=== PATIENT | male | born 1940 | race Caucasian/White ===

== ENCOUNTER 2021-04-24 08:33 | Emergency (ER) | payer MEDICARE, SELFPAY ==
--- NOTE | ~2021-04-24 | XR_ITS ---
EXAMINATION: XR facial bones min 3V DATE: 04/24/2021 09:16 INDICATION: Right facial pain. TECHNIQUE: 4 views of the facial bones were obtained. COMPARISON: Head CT 07/23/2010 FINDINGS: There is rightward deviation of posterior nasal septum and leftward deviation of anterior n diego septum. No fracture. IMPRESSION: 1. No fracture. Reviewed, dictated and finalized at location A. IMPRESSION: 1. No fracture.
[2021-04-24 08:48] VITALS: BP 134/86; PULSE 96; RESP 16; TEMP 36.2; O2SAT 100
--- NOTE | 2021-04-24 09:00 | ED.DENTAL ---
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 He states he cannot open his mouth or he has sharp pain Related Data Allergies Allergy/AdvReac Type Severity Reaction Status Date / Time hydrocodone Allergy Unknown HALLUCINATIONS-- MAKES Verified 02/20/21 11:49 HIM FEEL REALLY GOOFY tomato Allergy Unknown HIVES Verified 02/20/21 11:49 Review of Systems Review of Systems: CONSTITUTIONAL: Denies fever, chills, sweats. EYES: Denies visual changes, redness, discharge. ENT: Denies rhinorrhea, congestion, sore throat, otalgia. Right-sided jaw pain CARDIOVASCULAR: Denies chest pain, palpitations, edema. RESPIRATORY: Denies dyspnea, wheezing, cough GASTROINTESTINAL: Denies abdominal pain, nausea, vomiting, diarrhea. GENITOURINARY: Denies dysuria, hematuria, abnormal discharge SKIN: Denies rash or itching. NEUROLOGIC: Denies numbness, or focal weakness. PSYCHIATRIC: Denies anxiety or depression. [facility] Past Medical History Medical History Arthritis Benign hypertension Bilateral knee pain Bladder tumor CIS (carcinoma in situ of bladder) Hypertension Neck pain OAB (overactive bladder) Paralyzed vocal cords (~2015) Shonna Ramires Surgical History Surgical History History of nephroureterectomy Hx of cataract extraction Family History Family History Father Hypertension Family history of cardiovascular disease, Onset Age: 68 Mother Hypertension Carcinoma of colon, Onset Age: 75 Social History Social History Smoking status: Never smoker Second hand tobacco smoke exposure: No Smoking end date: 06/30/01 Alcohol intake: never Substance use: never Substance use type: does not use Comments Fredy Exam Narrative: CONSTITUTIONAL: Denies fever, chills, sweats. EYES: Denies visual changes, redness, discharge. ENT: Denies rhinorrhea, congestion, sore throat, otalgia. Right side of mouth is swollen states has sharp pain in the TMJ with attempt to open CARDIOVASCULAR: Denies chest pain, palpitations, edema. RESPIRATORY: Denies dyspnea, wheezing, cough GASTROINTESTINAL: Denies abdominal pain, nausea, vomiting, diarrhea. GENITOURINARY: Denies dysuria, hematuria, abnormal discharge SKIN: Denies rash or itching. NEUROLOGIC: Denies numbness, or focal weakness. PSYCHIATRIC: Denies anxiety or depression. Course Course Emergency Course: Patient states is the third time is had jaw swelling and pain like this in has been treated in the past with steroids- insists it is TMJ X-ray of facial bones shows no fracture there is a right forward deviation the posterior nasal same symptoms septum and forward left deviation of the anterior nasal septum no mention of change in mandible mandible on right side Discussed with patient based on location that could be a dental abscess Started on steroid taper pack, amoxicillin, and low-dose baclofen with referral back to his primary care physician for further evaluation Vital Signs Vital signs: Vital Signs Temperature 97.2 F L 04/24/21 08:48 Pulse Rate 96 04/24/21 08:48 Respiratory Rate 16 04/24/21 08:48 Blood Pressure 134/86 04/24/21 08:48 Pulse Oximetry 100 04/24/21 08:48 Temperature 97.2 F L 04/24/21 08:48 Pulse Rate 96 04/24/21 08:48 Respiratory Rate 16 04/24/21 08:48 Blood Pressure 134/86 04/24/21 08:48 Pulse Oximetry 100 04/24/21 08:48 MDM - Dental/Oral Differential Diagn
== END 2021-04-24 09:38 | disposition home or self-care (01) ==
PROVIDERS: Emergency Provider Nurse Practitioner; PCP Family Medicine
DX: R22.0 Localized swelling, mass and lump, head (principal); M26.621 Arthralgia of right temporomandibular joint; M19.90 Unspecified osteoarthritis, unspecified site; I10 Essential (primary) hypertension; Z85.51 Personal history of malignant neoplasm of bladder; Z98.49 Cataract extraction status, unspecified eye; Z90.5 Acquired absence of kidney; Z90.6 Acquired absence of other parts of urinary tract
CPT/HCPCS: 70150; 99213; G0463

== ENCOUNTER 2021-10-23 12:54 | Emergency (ER) | payer MEDICARE, SELFPAY ==
--- NOTE | ~2021-10-23 | CT_ITS ---
EXAMINATION: CT abdomen pelvis w con DATE: 10/23/2021 14:54 INDICATION: Left lower quadrant abdominal pain. TECHNIQUE: Computed tomography (CT) of the abdomen and pelvis was performed with 100 mL Omnipaque 350 intravenous contrast. Automated exposure control and iterative reconstruction technique were employe d. The dose-length product was 1053.53 mGy-cm. COMPARISON: CT abdomen and pelvis 04/02/2018 FINDINGS: The visualized portions of the lung bases demonstrate mild atelectasis. There is mild emphy sema. There is a 4 mm nodule in lingula. There is chronic mild elevation of right hemidiaphragm. No p leural effusion. There is left atrial enlargement of the heart. There are coronary artery calcificati ons. No pericardial effusion. The central pulmonary arteries are enlarged, consistent with pulmonary arterial hypertension. There is a 15.2 x 6.3 x 9.7 cm mass in the liver with tumor thrombus in left p ortal vein. There is a 12 mm cyst in left hepatic lobe. There is a 2.3 cm mass in left hepatic lobe. There is a 6 mm cyst in right hepatic lobe. The gallbladder is normal. Calcifications in the spleen a re consistent with old granulomatous disease. The pancreas and adrenal glands are normal. There are c hanges of right nephrectomy. There are cysts in left kidney measuring up to 7.9 cm. There are scatter ed diverticula in the colon. There is fat stranding in the mesentery in left lower quadrant. The appe ndix is normal. There is a 3.1 x 1.8 cm mass in right pelvis with adjacent surgical clips. There is p rominent fat in the inguinal canals that may be hernias. There is a mildly enlarged right common juana c lymph node. There is mild aortocaval lymphadenopathy. There is no free intraperitoneal fluid. There is severe lumbar spondylosis. There is a chronic compression fracture of T12. IMPRESSION: 1. 15.2 cm liver mass with tumor thrombus in left portal vein, consistent with malignancy such as hep atocellular carcinoma, cholangiocarcinoma, or metastatic disease. 2. 2.3 cm liver mass, consistent with metastatic disease. 3. Pelvic mass and retroperitoneal lymphadenopathy suspicious for metastatic urothelial carcinoma. 4. Fat stranding in mesentery in left lower quadrant, consistent with inflammation. Reviewed, dictated and finalized at location A. IMPRESSION: 1. 15.2 cm liver mass with tumor thrombus in left portal vein, consistent with malignancy such as hepatocellular carcinoma, cholangiocarcinoma, or metastatic disease. 2. 2.3 cm liver mass, consistent with metastatic disease. 3. Pelvic mass and retroperitoneal lymphadenopathy suspicious for metastatic ur othelial carcinoma. 4. Fat stranding in mesentery in left lower quadrant, consistent with inflammat ion.
[2021-10-23 13:05] VITALS: BP 143/78; PULSE 92; RESP 18; TEMP 36.1; O2SAT 94
[2021-10-23 13:23] LABS: Basophils Percent Auto 0.3 % (0.2-1.2); Eosinophils Percent Auto 0.5 % (0-4.4); Hemoglobin 12.6 g/dL (14.0-18.0); Immature Granulocyte Absolute 0.04 K/mm3 (0.00-0.031); Immature Granulocyte Percent A 0.5 % (0-0.5); Lymphocytes Absolute Auto 0.74 K/mm3 (0.9-3.2); Lymphocytes Percent Auto 9.6 % (18.3-44.2); Mean Corpuscular HGB Conc 32.3 g/dl (32-36); Mean Corpuscular Hemoglobin 28.4 pg (26-34); Monocytes Absolute Auto 0.7 K/mm3 (0.1-0.6); Monocytes Percent Auto 8.4 % (2.6-8.5); Neutrophils Absolute Auto 6.2 K/mm3 (1.3-6.7); Neutrophils Percent Auto 80.7 % (45.5-73.1); Platelet Count Result 231 k/mm3 (150-375); Red Blood Count 4.43 M/mm3 (4.6-6.20); Red Cell Distribution Width 12.9 % (11.5-14.5); White Blood Count 7.7 K/mm3 (4.5-10.0)
[2021-10-23 13:30] LABS: Add Urine Microscopic? YES; Appearance Urine Clear (Clear); Bilirubin Urine Negative (Negative); Blood Urine 1+ (Negative); Color Urine Yellow (Yellow); Glucose Urine UA Negative (Negative); Ketones Urine 1+ mg/dL (Negative); Leukocyte Esterase Ur Negative LEU/UL (Negative); Mucus Urine Few /lpf; Nitrate Urine Negative (Negative); Protein Urine Negative (Negative); Squamous Epithelial Cell Urine Rare /hpf (Few); Urobilinogen Urine Negative mg/dL (<2.0); WBC Urine 0-3 /hpf
[2021-10-23 13:33] LABS: Alanine Aminotransferase 20 U/L (4-50); Alkaline Phosphatase 163 U/L (38-126); Anion Gap 8 mmol/L (8-16); Aspartate Amino Transferase 32 U/L (17-59); Bilirubin,Total 1.6 mg/dL (0.2-1.3); Blood Urea Nitrogen 15 mg/dL (9-20); Calcium 8.7 mg/dL (8.4-10.2); Carbon Dioxide 25 mmol/L (22-30); Chloride 104 mmol/L (98-107); Estimated CRCL calculation 76 ml/min; Estimated Glomerular Filt Rate > 60; Glucose 97 mg/dL (65-110); Lipase 30 U/L (23-300); Potassium 3.9 mmol/L (3.4-5.0); Sodium 137 mmol/L (137-145)
--- NOTE | 2021-10-23 14:37 | ED.ABDPAIN ---
HPI - Abdominal Pain General Chief Complaint: Abdominal Pain Stated Complaint: abdominal pain Time Seen by Provider: 10/23/21 14:17 Source: patient Mode of arrival: ambulatory Limitations: no limitations History of Present Illness HPI narrative: Patient is a 81-year-old male who presents the ED with report of left lower quadrant abdominal pain for the past 3 to 4 days. Patient reports a history of diverticulosis previously seen on CT scan, but states he has never had an episode of diverticulitis. Over the last 3 to 4 days, he has had increasing pain in his LLQ. He has not tried anything for the pain at home. He also reports having recent constipation which has since resolved. His last bowel movement was last night and normal. He denies any fever, chills, nausea, vomiting, urinary symptoms, rectal bleeding. Related Data Allergies Allergy/AdvReac Type Severity Reaction Status Date / Time hydrocodone Allergy Unknown HALLUCINATIONS-- MAKES Verified 10/23/21 14:22 HIM FEEL REALLY GOOFY tomato Allergy Unknown HIVES Verified 10/23/21 14:22 Review of Systems Review of Systems: CONSTITUTIONAL: Denies fever, chills. CARDIOVASCULAR: Denies chest pain. RESPIRATORY: Denies dyspnea. GASTROINTESTINAL: Reports LLQ ABD pain, constipation (resolved). Denies nausea, vomiting, rectal bleeding, or diarrhea. GENITOURINARY: Denies dysuria or hematuria. SKIN: Denies rash or itching. MUSCULOSKELETAL: Denies back pain. NEUROLOGIC: Denies headache, numbness, or weakness. All systems reviewed & are unremarkable except as noted in HPI and below PMFSH Past Medical History Medical History Arthritis Benign hypertension Bilateral knee pain Bladder tumor CIS (carcinoma in situ of bladder) Hypertension Neck pain OAB (overactive bladder) Paralyzed vocal cords (~2015) Shonna Ramires Surgical History Surgical History History of nephroureterectomy Hx of cataract extraction Family History Family History Father Hypertension Family history of cardiovascular disease, Onset Age: 68 Mother Hypertension Carcinoma of colon, Onset Age: 75 Social History Social History Smoking status: Never smoker Second hand tobacco smoke exposure: No Smoking end date: 06/30/01 Alcohol intake: never Substance use: never Substance use type: does not use Exam Narrative: GENERAL: Well appearing, well-nourished, non-toxic, in no acute distress. HEAD: Normocephalic, atraumatic. NECK: Supple. No adenopathy, no masses. RESPIRATORY: Airway patent, respirations nonlabored. Clear to auscultation bilaterally, no rales, rhonchi, wheezing. CARDIOVASCULAR: Regular rate and rhythm without murmurs, rubs, or gallops. Peripheral pulses 2+ and equal bilaterally. ABDOMINAL: Soft, mild tenderness to palpation of suprapubic abdomen and RLQ, moderate tenderness to palpation of LLQ, nondistended, no hepatosplenomegaly. Normoactive BS. MUSCULOSKELETAL: Moves all extremities. Strength/ROM intact without gross deformities or TTP. SKIN: Warm, dry, normal color. No rashes. NEURO: A&O X3. Speech clear. Cranial nerves II-XII grossly intact. Steady gait. No ataxic movements. PSYCHIATRIC: Appropriate mood and affect. Normal interaction. Course Consultations Consultation #1: Discussed with Ila Washington NP for Dr. Bravo, patient presentation and workup. Will have office call to make follow up appointment. Date: 10/23/21 Time: 15:55 Consultation #2: Discussed case with Dr. Franco GI, advised patient to follow with [facility] for further evaluation. Date: 10/23/21 Time: 16:02 Vital Signs Vital signs: Vital Signs Temperature 97 F L 10/23/21 13:05 Pulse Rate 92 10/23/21 13:05 Respiratory Rate 18 10/23/21 13:05 Blood Press
[2021-10-23] MEDS: SODIUM CHLORIDE 0.9% IV 1,000 ML 999 ML IV CONT (14:56)
== END 2021-10-23 17:16 | disposition home or self-care (01) ==
PROVIDERS: Emergency Provider Emergency Medicine; PCP Family Medicine
DX: R16.0 Hepatomegaly, not elsewhere classified (principal); R10.9 Unspecified abdominal pain; I10 Essential (primary) hypertension; M19.90 Unspecified osteoarthritis, unspecified site; Z85.51 Personal history of malignant neoplasm of bladder
CPT/HCPCS: 36415; 74177; 80053; 81001; 83690; 85025; 96365; 99284; J0131; J7030; Q9967

== ENCOUNTER 2021-11-12 07:35 | Outpatient (CLI) | payer MEDICARE, SELFPAY ==
--- NOTE | ~2021-11-12 | NM_ITS ---
EXAMINATION: NM bone scan whole body DATE: 11/12/2021 11:56 INDICATION: Bladder cancer. Liver mass. TECHNIQUE: 24.9 mCi Tc-99m HDP was administered intravenously. Delayed whole-body scintigrams were o btained. COMPARISON: CT abdomen and pelvis 10/23/2021 FINDINGS: There is increased activity in T12 correlating with a chronic compression fracture by CT. T here is joint-increased activity in the acromioclavicular and sternoclavicular joints, wrists, and lacey mbar spine, likely osteoarthritis. There is increased activity at the right ankle, likely secondary t o arthritis or old fracture. The patient reports an old injury in this area. Right kidney is absent. IMPRESSION: 1. No evidence of metastatic disease. Reviewed, dictated and finalized at location B.
== END 2021-11-12 07:36 | disposition home or self-care (01) ==
LOC: ANHIMG 07:37
PROVIDERS: PCP Family Medicine; Visit Provider Urology
DX: K76.9 Liver disease, unspecified (principal)
CPT/HCPCS: 78306; A9561

== ENCOUNTER 2021-11-16 08:27 | Outpatient (CLI) | payer MEDICARE, SELFPAY ==
--- NOTE | 2021-11-12 11:49 | PC.NURSE ---
Pre Radiology instructions Report to the Outpatient Waiting Room, entrance under the green pavilion located off [facility], at time _0830 on date ___11/16/21____. Procedure Time: _1030 . One visitor will be allowed to accompany the patient into the hospital. The visitor will be instructed to remain with patient at all times or leave the building. We will allow the visitor to come back to the postoperative area when patient is ready. You and your visitor will be asked a series of questions to screen for COVID 19 for your protection. A mask is required within the hospital. Patients are to have no food or drink 6 hours prior to procedure time Driving will be restricted after the procedure, you must have a person to drive you home. Labs will be drawn in preop area and once reviewed, you will be taken to radiology area for procedure. When the procedure is completed, you will be taken to outpatient where you will be monitored for several hours. You may have one visitor in this area. Other than holding anti-coagulants, patient may take other medication(s) as scheduled. Prior to your appointment date patients are instructed to hold anti-coagulants after discussing with ordering provider to stop. If unable to discontinue anti-coagulants please notify radiologist. No aspirin or warfarin (Coumadin) for 7 days prior to the procedure. No clopidogrel (Plavix), ticagrelor (Brilinta), prasugrel (Effient) or dabigatran (Pradaxa) for 5 days prior to the procedure. No rivaroxaban (Xarelto), apixaban (Eliquis), dipyridamole (Aggrenox or Persantine) or cilostazol (Pletal) for 2 days prior to the procedure. Medications to discontinue per physician: ____NONE Date to take last dose: Please leave all valuables, including medications, at home the day of procedure. The hospital will not accept responsibility for valuables. Wear comfortable, loose fitting clothing. Follow any additional instructions given to you from ordering provider. Telephone instructions given to ___PATIENT and asked if any additional questions and then verbalized understanding. Patient advised to call scheduling provider office or registration scheduling [phone] if any additional questions.
[2021-11-12 11:51] VITALS: BMI 32.1
[2021-11-16] VITALS (9 sets, daily range): BP systolic 100–141; BP diastolic 67–82; PULSE 88–96; RESP 14–16; TEMP 35.9; O2SAT 93–98
--- NOTE | ~2021-11-16 | US_ITS ---
EXAMINATION: US biopsy liver DATE: 11/16/2021 11:15 INDICATION: Liver mass TECHNIQUE: The procedure including the risks and benefits was discussed with the patient. Risks discu ssed included bleeding and infection. The patient understood the risks and agreed to proceed. The sk in overlying the liver was prepped and draped in usual sterile fashion. Anesthetic was administered with 1% lidocaine subcutaneously. An 18 gauge core biopsy needle was advanced under continuous ultra sound observation to the lesion of interest. 4 core biopsy specimens were obtained. The needle was removed and the entry site was cleaned and dressed. Post procedure ultrasound demonstrated no hemorr anderson. FINDINGS: Ultrasound images demonstrate 11.9 x 10.7 x 8.2 cm heterogeneous mass with both hypoechoic and isoechoic regions and lobular margins at the junction of the left and right hepatic lobes. Subseq uent images demonstrate the biopsy needle advanced into the mass. IMPRESSION: 1. Successful Ultrasound-guided biopsy of 11.9 x 10.7 x 8.2 cm hepatic mass Reviewed, dictated and finalized at location A.
[2021-11-16 09:21] LABS: Mean Platelet Volume 10.6 fl (7.4-10.4); Platelet Count Result 252 k/mm3 (150-375)
[2021-11-16 09:37] LABS: INR 1.1; Prothrombin Time 14.2 Seconds (11.1-14.7)
--- NOTE | 2021-11-16 15:02 | SUR.PHASEII ---
1455 dr booker at bedside speaking with patient. patient is doing well, vital signs stable no pain, oxygen >925. patient okay for discharge per dr booker
== END 2021-11-16 15:10 | disposition home or self-care (01) ==
PROVIDERS: PCP Family Medicine; Referring Provider Urology; Visit Provider Radiology Diagnostic Radiology
PROC: BF45ZZZ Ultrasonography of Liver (ICD-10-PCS; CPT 47000; principal; 2021-11-16 10:30)
DX: K76.89 Other specified diseases of liver (principal); C22.7 Other specified carcinomas of liver
CPT/HCPCS: 36415; 47000; 76942; 85049; 85610; 88307; 88342

== ENCOUNTER 2021-12-04 12:00 | Outpatient (CLI) | payer MEDICARE, SELFPAY ==
--- NOTE | ~2021-12-04 | PE_ITS ---
EXAMINATION: PET skull to mid thigh DATE: 12/04/2021 13:38 INDICATION: Hepatocellular carcinoma. TECHNIQUE: Blood glucose level was 101 mg/dL. 11.055 mCi of 18-fluorodeoxyglucose (18-FDG) was admini stered i.v. Low dose computed tomography (CT) images were acquired from the base of the brain to the proximal thighs for attenuation correction and anatomic localization. Automated exposure control was employed. Dose-length product (DLP) was 1019 mGy-cm. Positron emission tomography (PET) images were a cquired in the same distribution. COMPARISON: CT abdomen and pelvis 10/23/2021 FINDINGS: Head/neck: There is increased activity in the oral cavity, pharynx, and glottis without abnormal CT c orrelate, likely physiologic. A left supraclavicular lymph node measures 13 x 11 mm with maximum SUV of 3.2. Chest: There is mild emphysema. There is mild elevation of right hemidiaphragm. There is mild atelect asis in the lungs, right worse than left. Calcified left hilar lymph nodes are consistent with old gr anulomatous disease. No pleural effusion. The heart size is normal. There are coronary artery calcifi cations. No pericardial effusion. There is a 13 mm subcutaneous mass without increased activity overl gloria the sternum, likely a sebaceous cyst. Abdomen/pelvis/proximal thighs: There are approximately 3 liver masses with increased activity. The l argest measures approximately 11.2 cm. Calcifications in the spleen are consistent with old granuloma tous disease. The pancreas and adrenal glands are normal. There are changes of right nephrectomy. The re is a 8.0 cm cyst in left kidney. There are no dilated loops of bowel. There is an enlarged right e xternal iliac node with increased activity. There is a 2.4 x 1.9 cm mass with maximum SUV of 6.6 in r ight pelvis adjacent to surgical clips. There is increased activity in multiple retroperitoneal lymph nodes. There is fat stranding with increased activity near the sigmoid colon. There is no free intra peritoneal fluid. At the junction of the right ilium and right gluteus medius muscle, there is a 1.5 cm focus of increased activity with maximum SUV of 3.[address] correlate. IMPRESSION: 1. 3 liver masses with increased activity, consistent with hepatocellular carcinoma. 2. Right pelvic mass and right pelvic and retroperitoneal lymphadenopathy with increased activity jase picious for metastatic urothelial carcinoma. 3. Fat stranding with increased activity in the sigmoid colon, consistent with inflammation versus pe ritoneal carcinomatosis. 4. Mildly enlarged left supraclavicular lymph node with increased activity, consistent with metastati c disease. Reviewed, dictated and finalized at location A. IMPRESSION: 1. 3 liver masses with increased activity, consistent with hepatocellular carci noma. 2. Right pelvic mass and right pelvic and retroperitoneal lymphadenopathy with increased activity suspicious for metastatic urothelial carcinoma. 3. Fat stranding with increased activity in the sigmoid colon, consistent with inflammation versus peritoneal carcinomatosis. 4. Mildly enlarged left supraclavicular lymph node with increased activity, con sistent with metastatic disease.
[2021-12-04 12:16] LABS: Glucose Point of Care 101 mg/dl (65-105)
== END 2021-12-04 12:01 | disposition home or self-care (01) ==
PROVIDERS: PCP Family Medicine; Visit Provider Internal Medicine Hematology & Oncology
DX: C22.0 Liver cell carcinoma (principal); R59.0 Localized enlarged lymph nodes; R19.00 Intra-abdominal and pelvic swelling, mass and lump, unspecified site
CPT/HCPCS: 78815; A9552

== ENCOUNTER 2021-12-06 11:46 | Outpatient (CLI) | payer MEDICARE, SELFPAY ==
[2021-11-29 15:04] VITALS: BMI 32.1
--- NOTE | 2021-11-29 15:12 | PC.NURSE ---
Report to the radiology dept, front of the [facility], at time _1130_ on date _12/06/21_. OR Time: _1200_. - You and your visitor will be asked a series of questions to screen for COVID 19 for your protection. - Only one visitor is allowed at this time. - The patient visitor is requested to leave or wait in car when not with patient. - A mask is required within the hospital. -Nothing to eat or drink 6 hours prior to your procedure (0600 AM) Take the following medications with a SIP of water the morning of procedure: _AS INSTRUCTED_ Medications to discontinue per physician ___AS INSTRUCTED Date to take last dose Please no make-up, nail kittitian, hairspray, perfume, deodorant, or body powder the day of surgery. No jewelry (including any body piercings) or valuables the day of surgery, leave them at home. Please take a shower or bath the night before, or the morning of, surgery with an antibacterial soap. Wear comfortable, loose fitting clothing. - Jewelry must be removed prior to entering the operating room. Rings and piercings that are not removed may be cut off. - The hospital will not accept responsibility for valuables. - Please leave all valuables, including medications, at home the day of surgery. If you are going home after surgery, a licensed bobtail driver must drive you home. - NO public transportation without another adult. - We recommend that an adult stay with you for 24 hours following discharge. - We also recommend that you do not drive, make important decision, drink alcoholic beverages, or take any drugs that were not prescribed by your health care provider for at least 24 hours after your discharge time. Follow any additional instructions given to you from RADIOLOGY. If you or anyone in your household have experienced Covid symptoms in the past week, please notify your surgeon or the nurse liaison at the phone number below for possible testing. Telephone instructions given to ____PT and asked if any additional questions and then verbalized understanding. Patient advised to call surgeon office or pre surgery nurse liaison [phone] if any additional questions.
[2021-12-06] VITALS (9 sets, daily range): BP systolic 84–132; BP diastolic 51–91; PULSE 83–99; RESP 16–18; O2SAT 92–96
--- NOTE | ~2021-12-06 | CT_ITS ---
EXAMINATION: CT biopsy lymph node DATE: 12/06/2021 13:29 INDICATION: Right pelvic mass. TECHNIQUE: The procedure including the risks, benefits, and alternatives was discussed with the patie nt. Risks discussed included bleeding and infection. The patient verbalized understanding of the risk s and agreed to proceed. The skin overlying the liver was prepped and draped in usual sterile fashio n. Anesthetic was administered with 1% lidocaine subcutaneously. A 16 gauge outer needle was advanc ed under CT guidance into the right pelvic mass. An 18 gauge core biopsy needle was then used to obta in 3 core biopsy specimens. Automated exposure control and iterative reconstruction technique were em ployed. The dose-length product was 148.32 mGy-cm. The needle was removed and the entry site was kirstin eduardo and dressed. There were no immediate complications. FINDINGS: CT images demonstrate the outer needle tip adjacent to a 2.4 x 1.9 cm mass in right pelvis. IMPRESSION: 1. CT-guided core needle biopsy of a right pelvic mass. Reviewed, dictated and finalized at location A.
== END 2021-12-06 17:29 | disposition home or self-care (01) ==
PROVIDERS: Radiology Diagnostic Radiology; PCP Family Medicine; Visit Provider Internal Medicine Hematology & Oncology
PROC: (CPT 77012; principal; 2021-12-06 12:00)
DX: C67.9 Malignant neoplasm of bladder, unspecified (principal)
CPT/HCPCS: 38505; 77012; 88305; 88342

== ENCOUNTER 2021-12-26 02:59 | Day surgery (SDC) | payer MEDICARE, SELFPAY ==
[2021-11-29 15:29] VITALS: BMI 32.1
--- NOTE | 2021-11-29 15:39 | PC.NURSE ---
Report to the Outpatient Waiting Room, entrance under the green pavilion located off [facility], at time ___0830____ on date __12/07/21 . OR Time: ___1030 . - You and your visitor will be asked a series of questions to screen for COVID 19 for your protection. - Only one visitor is allowed at this time. - The patient visitor is requested to leave or wait in car when not with patient. - A mask is required within the hospital. Patients may have clear liquids (water, carbonated beverages, clear teas, apple juice) until 3 hours prior to surgery (0730 AM) with a maximum of 20 ounces. - No food from midnight until time of surgery Take the following medications with a SIP of water the morning of surgery: __TRAMADOL IF NEEDED____ Medications to discontinue per physician N/A Date to take last dose Please no make-up, nail [place], hairspray, perfume, deodorant, or body powder the day of surgery. No jewelry (including any body piercings) or valuables the day of surgery, leave them at home. Please take a shower or bath the night before, or the morning of, surgery with an antibacterial soap. Wear comfortable, loose fitting clothing. - Jewelry must be removed prior to entering the operating room. Rings and piercings that are not removed may be cut off. - The hospital will not accept responsibility for valuables. - Please leave all valuables, including medications, at home the day of surgery. If you are going home after surgery, a licensed stake driver must drive you home. - NO public transportation without another adult. - We recommend that an adult stay with you for 24 hours following discharge. - We also recommend that you do not drive, make important decision, drink alcoholic beverages, or take any drugs that were not prescribed by your health care provider for at least 24 hours after your discharge time. Follow any additional instructions given to you from your surgeon. If you or anyone in your household have experienced Covid symptoms in the past week, please notify your surgeon or the nurse liaison at the phone number below for possible testing. Telephone instructions given to ___PT and asked if any additional questions and then verbalized understanding. Patient advised to call surgeon office or pre surgery nurse liaison [phone] if any additional questions.
--- NOTE | 2021-12-06 12:03 | WPDANESEPPF ---
Anes - Initial Pre Proc Eval Procedure: Operation Date: 12/07/21 10:30 Proposed Procedures p Insertion Rebecca Cath - Terri Taylor MD Date/Time: 12/06/21 12:03 Surgeon: Terri Taylro MD Pre Op Diagnosis: hepatocellular CA Patient Data Age: 81 Gender: M Height: 1.73 m Weight: 95.9 kg Allergies Allergy/AdvReac Type Severity Reaction Status Date / Time hydrocodone Allergy Unknown HALLUCINATIONS-- MAKES Verified 11/30/21 11:31 HIM FEEL REALLY GOOFY tomato Allergy Unknown HIVES Verified 11/30/21 11:31 Home Medications Medication Instructions Recorded Confirmed Type lisinopril 10 1 tablet PO DAILY #90 tabs 03/03/20 11/30/21 Rx mg-hydrochlorothiazide 12.5 mg tablet tramadol 50 mg tablet 50 mg PO Q6H PRN pain #30 tabs 10/23/21 11/30/21 Rx Results Review: All pre-operative results and documents have been reviewed as part of the pre-operative evaluation. [facility] Past Medical History Medical History Anemia Arthritis Benign hypertension Bilateral knee pain Bladder tumor CIS (carcinoma in situ of bladder) Hypertension Liver mass Neck pain OAB (overactive bladder) Paralyzed vocal cords (~2015) Shonna Ramires Surgical History Surgical History History of nephroureterectomy Hx of cataract extraction Family History Family History Father Hypertension Family history of cardiovascular disease, Onset Age: 68 Mother Hypertension Carcinoma of colon, Onset Age: 75 Social History Social History Smoking packs per day: 2 Smoking cigarettes per day: 40.0 Years smoked: 40 Smoking pack-years: 80.00 Smoking status: Never smoker Tobacco type: cigarettes Second hand tobacco smoke exposure: No Smoking end date: 06/30/01 Alcohol intake: never Substance use: never Substance use type: does not use Living arrangements: with family Gender identity (if verbalized by the patient): Male Sexual Orientation (if Verbalized by the Patient): Straight or Heterosexual Spiritual care concerns: No Anes - Eval Final PreProcedure Day of Procedure 12/06/21 12:03 Patient weight: obese Heart: regular rate and rhythm Lungs: clear to auscultation and normal air movement Airway: Mallampati scale class II Neurological: alert and oriented Last oral intake: >/= 8 hours ASA classification: III Emergent: no Anesthetic plan: proceed Anesthesia type and monitoring: general GIVS Results Review: All pre-operative results and documents have been reviewed as part of the pre-operative evaluation. Informed Consent: The patient's anesthetic plan and its attendant risks and benefits were discussed with the patient/family/POA. Questions were solicited and answers provided to the satisfaction of the patient/family/POA.
--- NOTE | 2021-12-07 09:02 | SUR.PREOP ---
0900- Pt has not arrived for port a cath placement, arrival time should have been at 0830. Called pt and he stated his procedure was cancelled last week. Updated manger, printed circuit boards plasma etcher, and recovery.
[2021-12-20 08:29] VITALS: BMI 28.9
--- NOTE | 2021-12-20 08:34 | PC.NURSE ---
Report to the Outpatient Waiting Room, entrance under the green pavilion located off [facility], at time ___1100____ on date __12/21/21 . OR Time: ___1300 . - You and your visitor will be asked a series of questions to screen for COVID 19 for your protection. - Only one visitor is allowed at this time. - The patient visitor is requested to leave or wait in car when not with patient. - A mask is required within the hospital. Patients may have clear liquids (water, carbonated beverages, clear teas, apple juice) until 3 hours prior to surgery (1000 AM) with a maximum of 20 ounces. - No food from midnight until time of surgery - Infants may have breast milk until 4 hours before surgery, infant formula 6 hours prior to surgery. - Children will be allowed to drink immediately following surgery. If applicable, please bring a bottle or sippy cup to assist with drinking. Juice, water, soda, and popsicles are readily available. For infants on formula, please bring formula the day of surgery. Pacifiers are allowed. Take the following medications with a SIP of water the morning of surgery: ___TRAMADOL IF NEEDED Medications to discontinue per physician N/A Date to take last dose Please no make-up, nail canadian, hairspray, perfume, deodorant, or body powder the day of surgery. No jewelry (including any body piercings) or valuables the day of surgery, leave them at home. Please take a shower or bath the night before, or the morning of, surgery with an antibacterial soap. Wear comfortable, loose fitting clothing. Children are encouraged to wear pajamas. - Jewelry must be removed prior to entering the operating room. Rings and piercings that are not removed may be cut off. - The hospital will not accept responsibility for valuables. - Please leave all valuables, including medications, at home the day of surgery. If you are going home after surgery, a licensed farm truck driver must drive you home. - NO public transportation without another adult. - We recommend that an adult stay with you for 24 hours following discharge. - We also recommend that you do not drive, make important decision, drink alcoholic beverages, or take any drugs that were not prescribed by your health care provider for at least 24 hours after your discharge time. For Pediatric surgeries, we recommend two adults accompany the child home (only one inside the building at this time). Follow any additional instructions given to you from your surgeon. If you or anyone in your household have experienced Covid symptoms in the past week, please notify your surgeon or the nurse liaison at the phone number below for possible testing. Telephone instructions given to ____PT and asked if any additional questions and then verbalized understanding. Patient advised to call surgeon office or pre surgery nurse liaison [phone] if any additional questions.
--- NOTE | 2021-12-20 10:00 | PC.NURSE ---
Report to the Outpatient Waiting Room, entrance under the green pavilion located off [facility], at time __1230 on date ___12/26/21____. OR Time: ___1430 . - You and your visitor will be asked a series of questions to screen for COVID 19 for your protection. - Only one visitor is allowed at this time. - The patient visitor is requested to leave or wait in car when not with patient. - A mask is required within the hospital. Patients may have clear liquids (water, carbonated beverages, clear teas, apple juice) until 3 hours prior to surgery (1130 AM) with a maximum of 20 ounces. - No food from midnight until time of surgery - Infants may have breast milk until 4 hours before surgery, infant formula 6 hours prior to surgery. - Children will be allowed to drink immediately following surgery. If applicable, please bring a bottle or sippy cup to assist with drinking. Juice, water, soda, and popsicles are readily available. For infants on formula, please bring formula the day of surgery. Pacifiers are allowed. Take the following medications with a SIP of water the morning of surgery: ___TRAMADOL IF NEEDED Medications to discontinue per physician N/A Date to take last dose Please no make-up, nail lao, hairspray, perfume, deodorant, or body powder the day of surgery. No jewelry (including any body piercings) or valuables the day of surgery, leave them at home. Please take a shower or bath the night before, or the morning of, surgery with an antibacterial soap. Wear comfortable, loose fitting clothing. Children are encouraged to wear pajamas. - Jewelry must be removed prior to entering the operating room. Rings and piercings that are not removed may be cut off. - The hospital will not accept responsibility for valuables. - Please leave all valuables, including medications, at home the day of surgery. If you are going home after surgery, a licensed jinrikisha driver must drive you home. - NO public transportation without another adult. - We recommend that an adult stay with you for 24 hours following discharge. - We also recommend that you do not drive, make important decision, drink alcoholic beverages, or take any drugs that were not prescribed by your health care provider for at least 24 hours after your discharge time. For Pediatric surgeries, we recommend two adults accompany the child home (only one inside the building at this time). Follow any additional instructions given to you from your surgeon. If you or anyone in your household have experienced Covid symptoms in the past week, please notify your surgeon or the nurse liaison at the phone number below for possible testing. Telephone instructions given to PT and asked if any additional questions and then verbalized understanding. Patient advised to call surgeon office or pre surgery nurse liaison [phone] if any additional questions.
--- NOTE | ~2021-12-26 | XR_ITS ---
EXAMINATION: XR chest port-a-cath/central Exam Date/Time: 12/26/2021 14:20 CDT HISTORY: INSERT AARON CATH, POST-OP Comparison: 02/29/2016. RESULT: Lines, tubes, and devices: Left chest implanted port terminating at the cavoatrial junction. Lungs and pleura: Right basilar scar, otherwise clear. Cardiomediastinal silhouette: Stable cardiomediastinal silhouette. Other: No acute osseous or upper abdominal finding. IMPRESSION: No acute cardiopulmonary process. Reviewed, dictated and finalized at location K.
--- NOTE | ~2021-12-26 | XR_ITS ---
EXAMINATION: XR fl guide central line place DATE: 12/26/2021 13:30 CDT INDICATION: INSERT AARON CATH . TECHNIQUE: 2 fluoroscopic images of the chest were obtained during Port-A-Cath insertion performed by the surgeon. I was not present in the operating room. Fluoroscopy exposure time was 24.5 seconds. Cu mulative dose was 6.27 mGy. COMPARISON: Subsequent chest radiograph performed at 2:21 PM FINDINGS: Fluoroscopic images demonstrate catheterization versus catheter placement into the right atrium, noti ng that the postprocedure image demonstrates appropriate cavoatrial tip placement. A second image shawnee ws the port placement over the left chest. IMPRESSION: Fluoroscopic documentation of Port-A-Cath insertion. Please refer to the operative note for complete procedural details. . Reviewed, dictated and finalized at location K. IMPRESSION: Fluoroscopic documentation of Port-A-Cath insertion. Please refer to the operat annika note for complete procedural details. .
--- NOTE | 2021-12-26 11:36 | PM.IMHP ---
H&P: HPI History of Present Illness Date/Time: 12/26/21 11:36 Chief Complaint: HCC Narrative: Pt is a 81 y/o M recently dx'd c hepatocellular carcinoma. Pt is going to undergo chemotherapy. Pt denies any previous central catheterization. Review of Systems Review of Systems: All systems reviewed & are unremarkable except as noted in HPI and below PMFSH Past Medical History Medical History Anemia Arthritis Benign hypertension Bilateral knee pain Bladder tumor CIS (carcinoma in situ of bladder) Hypertension Liver mass Neck pain OAB (overactive bladder) Paralyzed vocal cords (~2015) MD I[facility]os Surgical History Surgical History History of nephroureterectomy Hx of cataract extraction Family History Family History Father Hypertension Family history of cardiovascular disease, Onset Age: 68 Mother Hypertension Carcinoma of colon, Onset Age: 75 Social History Social History Smoking packs per day: 2 Smoking cigarettes per day: 40.0 Years smoked: 40 Smoking pack-years: 80.00 Smoking status: Former smoker Tobacco type: cigarettes Second hand tobacco smoke exposure: No Smoking end date: 04/08/00 Alcohol intake: never Substance use: never Substance use type: does not use Living arrangements: with family Gender identity (if verbalized by the patient): Male Sexual Orientation (if Verbalized by the Patient): Straight or Heterosexual Spiritual care concerns: No Meds Home Medications and Allergies Home Medications Medication Instructions Recorded Confirmed Type lisinopril 10 1 tablet PO DAILY #90 tabs 03/03/20 12/20/21 Rx mg-hydrochlorothiazide 12.5 mg tablet tramadol 50 mg tablet 50 mg PO Q6H PRN pain #30 tabs 10/23/21 12/20/21 Rx Allergies Allergy/AdvReac Type Severity Reaction Status Date / Time hydrocodone Allergy Unknown HALLUCINATIONS-- MAKES Verified 12/20/21 08:29 HIM FEEL REALLY GOOFY tomato Allergy Unknown HIVES Verified 12/20/21 08:29 Exam Const: General: cooperative, comfortable, no acute distress and ill appearing Orientation/consciousness: patient oriented x3 Neck: Neck: normal visual inspection, full ROM and no lymphadenopathy Chest: Chest palpation & inspection: normal inspection of the chest Resp: Effort & Inspection: normal respiratory effort Auscultation: clear to auscultation bilaterally Cardio: Rate: regular rate Rhythm: regular rhythm GI: Inspection: normal to inspection and non-distended GI Palp: No abdominal tenderness, Yes Soft to palpation, No Tenderness to palpation present (GI), No Guarding due to palpation present (GI) and No Rigid due to palpation Assessment and Plan Assessment and plan (1) HCC (hepatocellular carcinoma): Code(s): C22.0 - Liver cell carcinoma Status: Acute Assessment and Plan: will setup for VAD placement of the left
--- NOTE | 2021-12-26 11:42 | WPDHPUPDATE1 ---
History and Physical Update Update Date/Time: 12/26/21 11:42 History and Physical has been reviewed, including an updated exam of the patient. There are NO changes in the patient's condition. Risks, benefits, and alternatives have been discussed and questions answered. Patient agrees to proceed with procedure.
[2021-12-26 11:51] VITALS: BP 133/82; PULSE 83; RESP 18; TEMP 36.3; O2SAT 97
[2021-12-26] MEDS: LACTATED RINGERS 1,000 ML 30 ML IV CONT (12:02)
[2021-12-26] MEDS: KETOROLAC 15 MG/ML VIAL (*BKC) IV PUSH (12:04)
--- NOTE | 2021-12-26 13:21 | WPDANESEPPF ---
Anes - Initial Pre Proc Eval Procedure: Operation Date: 12/26/21 13:30 Proposed Procedures p Insertion Rebecca Cath - Terri Taylor MD Date/Time: 12/26/21 13:21 Surgeon: Terri Taylor MD Pre Op Diagnosis: hepatocellular CA Patient Data Age: 81 Gender: M Height: 1.73 m Weight: 87.3 kg Last Vital Signs Temp 97.3 F L 12/26/21 11:51 Pulse 83 12/26/21 11:51 Resp 18 12/26/21 11:51 BP 133/82 12/26/21 11:51 Pulse Ox 97 12/26/21 11:51 O2 Del Method Room Air 12/26/21 11:51 Allergies Allergy/AdvReac Type Severity Reaction Status Date / Time hydrocodone Allergy Unknown HALLUCINATIONS-- MAKES Verified 12/26/21 11:48 HIM FEEL REALLY GOOFY tomato Allergy Unknown HIVES Verified 12/26/21 11:48 Home Medications Medication Instructions Recorded Confirmed Type lisinopril 10 1 tablet PO DAILY #90 tabs 03/03/20 12/26/21 Rx mg-hydrochlorothiazide 12.5 mg tablet tramadol 50 mg tablet 50 mg PO Q6H PRN pain #30 tabs 10/23/21 12/26/21 Rx Patient hx anesthesia problems: none Family hx anesthesia problems: none Results Review: All pre-operative results and documents have been reviewed as part of the pre-operative evaluation. [facility] Past Medical History Medical History Anemia Arthritis Benign hypertension Bilateral knee pain Bladder tumor CIS (carcinoma in situ of bladder) Hypertension Liver mass Neck pain OAB (overactive bladder) Paralyzed vocal cords (~2015) MD I[facility]os Surgical History Surgical History History of nephroureterectomy Hx of cataract extraction Family History Family History Father Hypertension Family history of cardiovascular disease, Onset Age: 68 Mother Hypertension Carcinoma of colon, Onset Age: 75 Social History Social History Smoking packs per day: 2 Smoking cigarettes per day: 40.0 Years smoked: 40 Smoking pack-years: 80.00 Smoking status: Former smoker Tobacco type: cigarettes Second hand tobacco smoke exposure: No Smoking end date: 04/08/00 Alcohol intake: never Substance use: never Substance use type: does not use Living arrangements: with family Gender identity (if verbalized by the patient): Male Sexual Orientation (if Verbalized by the Patient): Straight or Heterosexual Spiritual care concerns: No Anes - Eval Final PreProcedure Day of Procedure 12/26/21 13:21 Patient weight: overweight Heart: regular rate and rhythm Lungs: clear to auscultation Airway: Mallampati scale class III Neurological: alert and oriented Last oral intake: >/= 8 hours ASA classification: III Emergent: no Anesthetic plan: proceed Anesthesia type and monitoring: general GIVS and standard monitoring Results Review: All pre-operative results and documents have been reviewed as part of the pre-operative evaluation. Informed Consent: The patient's anesthetic plan and its attendant risks and benefits were discussed with the patient/family/POA. Questions were solicited and answers provided to the satisfaction of the patient/family/POA.
[2021-12-26] MEDS: ceFAZolin 2 GM/D5W 50 ML 2 GM/50 ML BAG IVPB (13:28)
[2021-12-26] MEDS: HEPARIN SODIUM, PORCINE 10,000 UNITS/10 ML VIAL 10000 UNITS IRRIGATION (14:02)
[2021-12-26] MEDS: LIDO 1%/EPINEPHRINE/PF 1:200,000 30 ML VIAL XX (14:02)
[2021-12-26] MEDS: HEPARIN SODIUM 5,000 UNITS/ML VIAL 5000 UNITS IRRIGATION (14:02)
--- NOTE | 2021-12-26 14:09 | W.PM.PROC2 ---
Procedure Note - Detailed Date of Procedure 12/26/21 Pre-op Diagnosis hepatocellular CA Post-op Diagnosis Same Procedure Performed placement of left subclavian venous access device under fluoroscopic guidance Surgeon Terri Taylor MD Anesthesia MAC and Local Indications 81 y/o M c HCC needing access for chemotherapy Findings first stick L SCV Description of Procedure Patient was brought into the operating room and placed in the supine position. After adequate induction of mac anesthesia, the patient was prepped and draped in normal sterile fashion. Time-out was then done to verify the patient's identity, as well as the procedure being performed. I began by making a small incision in the left chest, I then gained access into the left subclavian vein with an 18 gauge needle. I then placed the guidewire into the vein and confirmed placement via fluoroscopic guidance. I then locally anesthetized the area in the left chest. I then enlarged the incision around the guidewire including making a subcutaneous pocket inferiorly to allow placement of the port itself. I then placed a dilating sheath over the guidewire into the left subclavian vein via sterile Seldinger technique. This was once again done and confirmed via fluoroscopic guidance. I then removed the dilator and the guidewire, now just leaving the sheath in the vein. I then fed the previously flushed catheter into the left subclavian vein under fluoroscopic guidance. At approximately 22 cm, the catheter was noted to be near the atrial caval junction. I then peeled away the sheath, now just leaving the catheter in the vein. I then was able to easily draw and flush from the catheter. The catheter was cut to fit and attached to the port itself. The port was placed into the previously made subcutaneous pocket and sutured in with 0 Ethibond suture. Final fluoroscopic view showed the termination of the catheter at the atrial caval junction with a nice smooth curvature back to the port itself. I was able to gain access to the port with a José needle and was able to easily draw and flush from the port. I then flushed 4 cc of a final heparin flush into the port. The incision was closed with 3 0 Vicryl suture in the subcutaneous tissue and the skin was closed with 4 O Monocryl subcuticular suture. Dermabond was then placed on wound. The patient tolerated the procedure well and will be sent to the recovery room in stable condition. Implants L SCV VAD Estimated Blood Loss 5 Drains No Packing No Pathology None sent Complications No immediate complications Condition Stable Disposition PACU [facility] Billing Surgery - Charge Forward: Surgery Billing
[2021-12-26 14:15] VITALS: BP 90/59; PULSE 93; RESP 16; O2SAT 96
[2021-12-26 14:45] VITALS: BP 124/79; PULSE 88; RESP 16; O2SAT 96
== END 2021-12-26 15:25 | disposition home or self-care (01) ==
PROVIDERS: PCP Family Medicine; Visit Provider Surgery
PROC: (CPT 36561; principal; 2021-12-26 13:30)
DX: C22.0 Liver cell carcinoma (principal); I10 Essential (primary) hypertension; D64.9 Anemia, unspecified; Z85.51 Personal history of malignant neoplasm of bladder; Z87.891 Personal history of nicotine dependence
CPT/HCPCS: 36561; 77001; C1788; J0690; J1100; J1644; J1885; J2405; J2704; J7030; J7120

== ENCOUNTER 2022-01-28 12:16 | Outpatient (CLI) | payer MEDICARE, SELFPAY ==
--- NOTE | ~2022-01-28 | US_ITS ---
EXAMINATION:US venous doppler LE RT INDICATION:Right leg swelling TECHNIQUE: Multiple grayscale, color flow and Doppler images of the right lower extremity deep venous systems were obtained and reviewed. COMPARISON:No prior studies for comparison. FINDINGS: The common femoral, superficial femoral and popliteal veins demonstrate normal respiratory variation, augmentation and compressibility. Color flow is also seen within the posterior tibial, pe roneal, greater saphenous and profunda veins. IMPRESSION: 1: No lower extremity deep venous thrombosis. Reviewed, dictated and finalized at location A.
== END 2022-01-28 12:17 | disposition home or self-care (01) ==
PROVIDERS: PCP Family Medicine; Visit Provider Internal Medicine Hematology & Oncology
DX: M79.89 Other specified soft tissue disorders (principal)
CPT/HCPCS: 93971

== ENCOUNTER 2022-03-12 09:36 | Outpatient (CLI) | payer MEDICARE, SELFPAY ==
--- NOTE | ~2022-03-12 | CT_ITS ---
EXAMINATION: CT chest abdomen pelvis w con DATE: 03/12/2022 10:11 INDICATION: Malignant neoplasm of urinary bladder, unspecified site. TECHNIQUE: Computed tomography (CT) of the chest, abdomen, and pelvis was performed with 100 mL Omnip aque 350 intravenous contrast. Automated exposure control and iterative reconstruction technique were employed. The dose-length product was 778.60 mGy-cm. COMPARISON: CT abdomen and pelvis 10/23/2021 FINDINGS: CHEST CT: There is moderate emphysema. Calcified left lung nodules and calcified left hilar and mediastinal lym ph nodes are consistent with old granulomas disc disease. There is mild scarring at the lung apices. No pleural effusion. There is a left subclavian port with tip in azygos vein. The heart size is goldy l. No pericardial effusion. There are coronary artery calcifications. There is moderate thoracic spon dylosis and severe cervical spondylosis. There is a chronic compression fracture of T12. ABDOMEN/PELVIS CT: There is a 20.0 x 13.3 x 10.2 cm mass in the liver with tumor thrombus in right and left portal veins , increased in size from 15.2 x 9.0 x 7.3 cm. There is a new 3.8 cm mass in right hepatic lobe. There is a 10 mm cyst in left hepatic lobe. The gallbladder is normal. Calcifications in the spleen are co nsistent with old granulomatous disease. The pancreas and adrenal glands are normal. Right kidney is absent. There are cysts in left kidney measuring up to 8.2 cm. The prostate is mildly enlarged. There is a 15.6 cm mass in right pelvis adjacent to surgical clips previously measured 3.2 x 2.0 cm. A 2.5 x 1.6 cm right external iliac node previously measured 2.0 x 1.1 cm. There is diverticulosis of the colon without evidence of diverticulitis. The appendix is normal. There is peritoneal nodularity, con sistent with carcinomatosis. There is no free intraperitoneal fluid. There are bilateral inguinal her nias containing fat. There is severe lumbar spondylosis. IMPRESSION: 1. Worsened liver masses, peritoneal carcinomatosis, and pelvic lymphadenopathy, consistent with meta static disease. Reviewed, dictated and finalized at location A. IMPRESSION: 1. Worsened liver masses, peritoneal carcinomatosis, and pelvic lymphadenopathy , consistent with metastatic disease.
== END 2022-03-12 09:37 | disposition home or self-care (01) ==
LOC: ANHIMG 09:37
PROVIDERS: PCP Family Medicine; Visit Provider Internal Medicine Hematology & Oncology
DX: C67.9 Malignant neoplasm of bladder, unspecified (principal); R16.0 Hepatomegaly, not elsewhere classified; K40.90 Unilateral inguinal hernia, without obstruction or gangrene, not specified as recurrent; K76.89 Other specified diseases of liver
CPT/HCPCS: 71260; 74177; Q9967

== ENCOUNTER 2022-08-15 08:08 | Emergency (ER) | payer OTHER, MEDICARE, SELFPAY ==
[2022-08-15] VITALS (24 sets, daily range): BP systolic 113–129; BP diastolic 50–78; PULSE 0–120; RESP 15–33; TEMP 36.7; O2SAT 92–96
--- NOTE | ~2022-08-15 | XR_ITS ---
EXAMINATION: XR hip RT 2V w AP pelvis INDICATION: Right hip pain TECHNIQUE: AP view the pelvis and two views of the right hip are obtained. COMPARISON: None available FINDINGS: There is an acute intertrochanteric fracture of the right femur. Bone alignment is normal. No additional fracture is identified. There is moderate spondylosis of the lower lumbar spine. Surgic al clips are present in the right pelvis and right upper quadrant. IMPRESSION: 1. Intertrochanteric right femur fracture. Reviewed, dictated and finalized at location [facility]
--- NOTE | 2022-08-15 09:51 | ED.FALL ---
HPI - Fall General Chief Complaint: Fall Stated Complaint: Fall hip pain Time Seen by Provider: 08/15/22 08:53 History of Present Illness HPI Narrative: Patient is a 82-year-old male with a history of liver and bladder cancer, currently on hospice, here for evaluation of right hip pain after a fall this morning. Patient states that he was ambulating in his usual state of health when his leg tripped on something on the ground, causing him to fall. He landed on his right hip. No head injury or loss of consciousness. He takes tramadol for chronic pain, states this has not helped. Related Data Home Medications Medication Instructions Recorded Confirmed cyanocobalamin (vitamin B-12) 1,000 mcg PO DAILY 01/14/22 03/18/22 1,000 mcg tablet (Vitamin B-12) ferrous sulfate 325 mg (65 mg 325 mg PO DAILY 01/14/22 03/18/22 iron) tablet oxycodone-acetaminophen 5 mg-325 325 tablet PO DAILY 01/14/22 03/18/22 mg tablet Allergies Allergy/AdvReac Type Severity Reaction Status Date / Time hydrocodone Allergy Unknown HALLUCINATIONS-- MAKES Verified 08/15/22 08:27 HIM FEEL REALLY GOOFY tomato Allergy Unknown HIVES Verified 08/15/22 08:27 Review of Systems Review of Systems: Gen.: Denies fevers or chills Eyes: Denies eye pain or visual change ENT: Denies congestion Respiratory: Denies shortness of breath or cough CV: Denies chest pain or palpitations GI: Denies abdominal pain nausea, emesis or diarrhea denies burning, urgency, frequency or hematuria Musculoskeletal: Reports right hip pain. Denies back pain or muscle pain Neuro: Denies numbness, tingling, weakness or focal weakness Skin: Denies rash Except as documented, all other systems reviewed and negative [facility] Past Medical History Medical History Anemia Arthritis Benign hypertension Bilateral knee pain Bladder tumor CIS (carcinoma in situ of bladder) Hypertension Liver mass Neck pain OAB (overactive bladder) Paralyzed vocal cords (~2015) Shonna Ramires Surgical History Surgical History History of nephroureterectomy Hx of cataract extraction Family History Family History Father Hypertension Family history of cardiovascular disease, Onset Age: 68 Mother Hypertension Carcinoma of colon, Onset Age: 75 Social History Social History Smoking packs per day: 2 Smoking cigarettes per day: 40.0 Years smoked: 40 Smoking pack-years: 80.00 Smoking status: Former smoker Tobacco type: cigarettes Second hand tobacco smoke exposure: No Smoking end date: 04/08/00 Alcohol intake: never Substance use: never Substance use type: does not use Living arrangements: with family Gender identity (if verbalized by the patient): Male Sexual Orientation (if Verbalized by the Patient): Straight or Heterosexual Spiritual care concerns: No Exam Narrative: APPEARANCE: Chronically ill-appearing Head: Normocephalic and atraumatic. EYES: PERRLA/EOMI, conjunctivae clear NOSE: No nasal drainage EARS: External ear normal in appearance THROAT: Oropharynx is clear. Mucous membranes are moist. NECK: Supple. No adenopathy, no masses. RESPIRATORY: Airway patent, respirations nonlabored. Clear to auscultation bilaterally, no rales, rhonchi, wheezing. CARDIOVASCULAR: Regular rate and rhythm without murmurs, rubs, or gallops. ABDOMINAL: Abdomen is distended and nontender. Normoactive bowel sounds. Soft. No rebound tenderness or guarding. MUSCULOSKELETAL: Tenderness to palpation over right hip. No obvious deformities. Pain with range of motion particularly flexion at the hip. 2+ pitting edema to bilateral lower extremities. Extremities are warm and well-perfused. Moves all extremities well. NEURO: Normal spee
[2022-08-15] MEDS: MORPHINE SULFATE (*CRX) 15 MG TAB IR PO (10:36)
== END 2022-08-15 12:26 | disposition hospice, home (50) ==
PROVIDERS: Emergency Provider Physician Assistant; PCP Family Medicine
DX: S72.141A Displaced intertrochanteric fracture of right femur, initial encounter for closed fracture (principal); C22.9 Malignant neoplasm of liver, not specified as primary or secondary; D09.0 Carcinoma in situ of bladder; I10 Essential (primary) hypertension; N32.81 Overactive bladder; D64.9 Anemia, unspecified; M19.90 Unspecified osteoarthritis, unspecified site; Z98.49 Cataract extraction status, unspecified eye; Z90.5 Acquired absence of kidney; Z90.6 Acquired absence of other parts of urinary tract; Z87.891 Personal history of nicotine dependence; W18.09XA Striking against other object with subsequent fall, initial encounter
CPT/HCPCS: 51702; 73502; 99283; A9270